=== PATIENT | female | born 1960 | race Caucasian/White ===

== ENCOUNTER 2024-04-09 11:22 | Outpatient (CLI) | payer OTHER, SELFPAY ==
--- NOTE | ~2024-04-09 | MM_ITS ---
EXAMINATION: MM screening celine BI w belia HISTORY: Screening TECHNIQUE: Craniocaudal and mediolateral oblique 3-D tomosynthesis images were obtained and synthetic 2-D images were generated. CAD analysis was submitted and interpreted. COMPARISON: Comparison to multiple prior studies sequentially, with oldest reviewed study dated 07/30. BREAST PARENCHYMAL COMPOSITION: Not dense: There are scattered areas of fibroglandular density. FINDINGS: There is no evidence of suspicious mass, calcification, or architectural distortion to sugg est malignancy in either breast. There has been no suspicious interval change. IMPRESSION: 1. No mammographic evidence of malignancy. 2. Recommend routine screening mammography in one year. BI-RADS Category 1: Negative Reviewed, dictated and finalized at location B.
== END 2024-04-09 11:23 ==
LOC: MICIMG 11:25
PROVIDERS: PCP Family Medicine; Visit Provider Family Medicine
DX: Z12.31 Encounter for screening mammogram for malignant neoplasm of breast (principal); Z78.0 Asymptomatic menopausal state
CPT/HCPCS: 77063; 77067

== ENCOUNTER 2024-04-15 07:48 | Outpatient (CLI) | payer OTHER, SELFPAY ==
--- NOTE | ~2024-04-15 | DEXA_ITS ---
? Bone Density Report? Name:? TAO BHATTI Enrique Patient ID:??? [id number] Age:? 63 Sex:? Female Ethnicity:? White Date of : 1960 Indication: postmenopausal; screening for osteoporosis; height loss; hysterectomy; Referring Provider: Rasheeda Pike Study: Bone densitometry was performed. Exam Date: April 15, 2024 Accession number: [id number] Bone Density: Region? BMD??? T-score? Z-score?? Classification AP Spine(L1-L4)? 0.813?? -2.1? -0.4? Osteopenia Femoral Neck (Left)? 0.616?? -2.1? -0.6? Osteopenia Total Hip (Left)? 0.728?? -1.8? -0.5?Osteopenia Femoral Neck (Right)? 0.617?? -2.1? -0.6? Osteopenia Total Hip (Right)? 0.741?? -1.7? -0.4? Osteopenia Femoral Neck Mean? 0.616?? -2.1? -0.6? Osteopenia Total Hip Mean? 0.734?? -1.7? -0.5?Osteopenia World Health Organization criteria for BMD impression classify patients as: Normal (T-score at or above -1.0), Osteopenia (T-score between -1.0 and -2.5), or Osteoporosis (T-score at or below -2.5). 10-year Fracture Risk(1): Major Osteoporotic Fracture? 11% Hip Fracture? 1.6% Reported Risk Factors: [place] (), Neck BMD=0.616, BMI=27.1 (1) FRAX? Version 3.08. Fracture probability calculated for an untreated patient. Fracture probability may be lower if the patient has received treatment. Clinical Information Provided by Patient: Has used the following medications: Vitamin D, Calcium Has the following medical conditions: Hysterectomy Patient maximum height was 67 Menopause Age: 49 Drinks caffeinated beverages Onset of menses at age 13 Number of children 2 Missed period for more than 6 months in a row Impression: The patient has low bone mass, based on the Total Spine T-score. Discussion: BONE DENSITY IS LOW AT ONE OR MORE SKELETAL SITES. This patient's lowest T-score is low at one or more skeletal sites.? It meets the World Health Organization's (WHO) criteria for ?low bone mass?? (T-score between -1.0 and -2.5).? The patient's 10-year risk of fracture as calculated by FRAX is less than the threshold where pharmacological therapy is recommended by the National Osteoporosis Foundation (NOF).? However, all treatment decisions require clinical judgment and consideration of individual patient factors, including patient preferences, comorbidities, previous drug use, risk factors not captured in the FRAX model (e.g., frailty, falls, vitamin D deficiency, increased bone turnover, interval significant decline in bone density) and possible under or overestimation of fracture risk by FRAX. The patient should follow a healthful lifestyle (good nutrition with adequate calci
== END 2024-04-15 07:49 | disposition home or self-care (01) ==
LOC: CHSIMG 07:49
PROVIDERS: PCP Family Medicine; Visit Provider Family Medicine
DX: Z78.0 Asymptomatic menopausal state (principal); M85.89 Other specified disorders of bone density and structure, multiple sites
CPT/HCPCS: 77080

== ENCOUNTER 2025-02-17 00:34 | Day surgery (SDC) | payer OTHER, SELFPAY ==
[2025-02-06 11:32] VITALS: BMI 26.2
--- OUTSIDE RECORDS SUMMARY | 2025-02-17 00:37 | XMS_ITS | CONTINUITY OF CARE DOCUMENT ---
Author Name benitez marquis Address Unknown Organization [facility] Address [address] [place] [address] Phone [phone] Care Team Providers Care Consulting Psychologist Name Role Phone benitez marquis Unavailable Unavailable
--- OUTSIDE RECORDS SUMMARY | 2025-02-17 00:37 | XMS_ITS | Referral Summary ---
Author Organization [facility] Address [address] [place] [address] Care Team Providers Care Highway Maintenance Crew Worker Name Role Phone Rasheeda Pike MD Primary Care Provider [phone] Allergies No known active allergies Medications calcium citrate-vitamin D3 200 mg-3.125 mcg (125 unit) tablet Take 125 mg by mouth 3 (three) times a day Active buPROPion XL (WELLBUTRIN XL) 300 mg 24 hr tablet Take 300 mg by mouth daily Active simvastatin (ZOCOR) 20 mg tablet Take 20 mg by mouth nightly Active vitamin b complex tablet Take 1 tablet by mouth 3 (three) times a day Active escitalopram (LEXAPRO) 10 mg tablet Take 10 mg by mouth daily Active calcium carbonate-vitam in D3 1,500 mg (600mg elemental) -800 unit per tablet Take 1 tablet by mouth 2 (two) times a day Active levothyroxine (SYNTHROID) 50 mcg tablet Take 50 mcg by mouth electroplater before breakfast Active aspirin 81 mg enteric coated tablet Take 81 mg by mouth daily Active propranolol LA (INDERAL LA) 60 mg 24 hr capsuleIndicati ons:Tremor Take 60 mg by mouth daily Active primidone (MYSOLINE) 50 mg tabletIndicatio ns:Tremor 1/4 tab qhs for 1 week, 1/2 tab po qhs for 1 week, 1/4 tab qam and 1/2 tab qhs for 1 week, 1/2 tab po bid for 1 week, 1/2 tab qam, 1 tab qhs for 1 week, then 1 tab bid 120 tablet 3 1 Active Active Problems No known active problems Social History Tobacco Use Types Packs/Day Years Used Date Smoking Tobacco: Former Smokeless Tobacco: Current Personal Safety Answer Date Recorded Getting School Help Needed Not on file 01/12 Comments Unknown Sex and Gender Information Value Date Recorded Sex Assigned at Not on file Legal Sex Female 11:28 PM ACCIDENT EXAMINER Gender Identity Female 09/19/2021 3:07 PM ACCIDENT EXAMINER Sexual Orientation Not on file Last Filed Vital Signs Vital Sign Reading Time Taken Comments Blood Pressure 139/76 09/21/2021 9:38 AM ACCIDENT EXAMINER Pulse 60 09/21/2021 9:38 AM ACCIDENT EXAMINER Temperature - - Respiratory Rate - - Oxygen Saturation - - Inhaled Oxygen Concentration - - Weight 74.8 kg (164 lb 12.8 oz) 09/21/2021 9:38 AM ACCIDENT EXAMINER Height 170.2 cm (5' 7 ) 09/21/2021 9:38 AM ACCIDENT EXAMINER Body Mass Index 25.81 09/21/2021 9:38 AM ACCIDENT EXAMINER Plan of Treatment Not on file Insurance [facility] AETNA SIGNATURE Care Teams Highway Maintenance Crew Worker Relationship Specialty Start Date End Date Rasheeda Pike MD PCP - General 10/06/16
--- OUTSIDE RECORDS SUMMARY | 2025-02-17 00:37 | XMS_ITS | Continuity of Care Document ---
Author Organization [facility] Address [address] [place] [address] Phone Care Team Providers Care Child Care Supervisor Name Role Phone Crystal Webber Unavailable Unavailable Advance Directives Directive Yes / No Effective Date File Name No Information Encounters Encounter Description Practice Location Reason(s) For Visit Diagnoses Date Provider Providers Copied on Encounter [facility], [address], [place], [place], [id number], [place] tel:[phone] [facility] No Information 0 [address]. [address] , [address], [place], [address], [place]. tel:[phone] Referring Provider: Nato Flores MD, [address], [place], [facility]. tel:[phone] Family History Family Member Type Diagnosis Age At Onset No Information Payers Payer name Insurance type Covered republican ID Authoriza timone(s) [facility] Commercial CI [id number] Social History Type Description Quantity Date Captured Comments Sex Female Smoking Status No Information Chief Complaint And Reason For Visit No Information Reason For Referral Reason For Referral No Information History Of Present Illness Encounter Date Complaint History Of Prese nt Illness No Information Functional Status Date Functional Assessmen t No Information Instructions Date Instruction Additional Infor mation No Information Assessments Type Assessment Date No Information Patient Care Teams Name Effective Dates (start - stop) Status Members No Information
--- OUTSIDE RECORDS SUMMARY | 2025-02-17 00:37 | XMS_ITS | Clinical Summary ---
Author Organization [facility] Address [address] [place] [address] Care Team Providers Care Stranding Machine Operator Helper Name Role Phone Rasheeda Pike MD Primary Care Provider [phone] Source Comments [facility],non-owned Affiliates and Associated Physician Practices is amultiple site organization consisting of ambulatory clinics and hospital sitesin [place], [place], [place] and [place]. This disclosure is being madepursuant to the Care Everywhere program and may not contain all information available regarding this patient. Last updated 18.[facility] Allergies No known active allergies Medications * Be aware that medications may not be up to date on this document. Always verify current medications with the patient. LEVOTHYROXINE SODIUM PO Active Escitalopram Oxalate (LEXAPRO PO) Active CALCIUM CARBONATE-VIT D-MIN PO Active simvastatin (ZOCOR) 20 MG tablet TAKE 1 TABLET BY MOUTH EVERY DAY IN THE EVENING 3 06/03/2019 Active benzonatate (TESSALON) 200 MG capsule Take 1 capsule by mouth 3 times daily as needed for Cough 30 capsule 08/20/2019 Active Social History Tobacco Use Types Packs/Day Years Used Date Smoking Tobacco: Never Smokeless Tobacco: Never Comments No Sex and Gender Information Value Date Recorded Sex Assigned at Not on file Legal Sex Female 2:58 PM CDT Gender Identity Not on file Sexual Orientation Not on file Last Filed Vital Signs Vital Sign Reading Time Taken Comments Blood Pressure 126/82 08/20/2019 4:22 PM CDT Pulse 81 08/20/2019 4:22 PM CDT Temperature 36.8 C (98.3 F) 08/20/2019 4:22 PM CDT Respiratory Rate 16 05/06/2019 10:57 AM CDT Oxygen Saturation 99% 05/06/2019 10:57 AM CDT Inhaled Oxygen Concentration - - Weight 72.6 kg (160 lb) 08/20/2019 4:22 PM CDT Height 170.2 cm (5' 7 ) 08/20/2019 4:22 PM CDT Body Mass Index 25.06 08/20/2019 4:22 PM CDT Plan of Treatment Health Maintenance Due Date Last Done Comments BONE DENSITY TESTING 1960 COLOGUARD (AGES 45-75) - COL ON CA SCREENING 1960 COLON MONITORING 1960 COLONOSCOPY - COLON CA SCREENING 1959 CT COLONOGRAPHY - COLON CA SCREENING 1960 Colorectal Cancer Screening 1960 FIT - COLON CA SCREENING 1960 FLEX SIG - COLON CA SCREENING 1960 MAMMOGRAM 1960 HIV SCREENING 1974 HEPATITIS C SCREENING 05/07/1977 DTAP/TDAP/TD VACCINES (1 - Tdap) 1978 PNEUMOCOCCAL VACCINE 50+ (1 of 1 - PCV) 2009 ZOSTER VACCINE (1 of 2) 2009 SCREENING FOR DIABETES 04/01/2019 COVID-19 VACCINE ( - 2023-2 5 season) 2024 DEPRESSION SCREENING 10/30/2024 INFLUENZA VACCINE (Season Ended) 2025 Respiratory Syncytial Virus (RSV) Vaccine Pt: or over 60 yrs (1 - 1-dose 75+ series) 2034 HEPATITIS B VACCINE Aged Out No longe r eligible based on patient's age to complete this topic HIB VACCINE Aged Out No longer eligi ble based on patient's age to complete this topic HPV VACCINE Aged Out No longer eligi ble based on patient's age to complete this topic MENINGOCOCCAL (Group B) VACC INE SHARED DECISION-MAKING Aged Out No longer eligibl e based on patient's age to complete this topic MENINGOCOCCAL GROUPS A/C/Y/W VACCINE Aged Out No longer eligible b ased on patient's age to complete this topic Insurance AETNA AETNA Care Teams Stranding Machine Operator Helper Relationship Specialty Start Date End Date Rasheeda Pike MD [address] [place] [address] PCP - General 07/13/21
--- OUTSIDE RECORDS SUMMARY | 2025-02-17 00:38 | XMS_ITS | Clinical Summary ---
Author Organization [facility] Address [address] [place] [address] Phone Care Team Providers Care Loan Broker Name Role Phone Rasheeda Pike MD Primary Care Provider [phone] Social History Tobacco Use Types Packs/Day Years Used Date Smoking Tobacco: Never Assessed Comments Unknown Sex and Gender Information Value Date Recorded Sex Assigned at Not on file Legal Sex Female 7:58 PM CDT Gender Identity Not on file Sexual Orientation Not on file Plan of Treatment Health Maintenance Due Date Last Done Comments DEXA Bone Density 1960 Hepatitis C Virus (HCV) Screening 1960 TdaP Immunization 1960 Pap Smear 1980 Cervical Cancer Screening (CCS) 1989 HPV/Cotest 1989 Cologuard 2009 Immunochemical Fecal Occult Blood 2009 Mammogram 2009 Pneumococcal Immunization (5 0+ years) (1 of 1 - PCV) 2009 Zoster Immunization (1 of 2) 2009 Influenza Immunization (#1) 2024 SARS-COV-2 Immunization ( - season) 2024 Colonoscopy 07/22/2026 07/22/2019 Colorectal Cancer Screening 07/22/2026 Respiratory Syncytial Virus (RSV) Immunization (Adult) (1 - 1-dose 75+ series) 2034 07/22/2019 Hepatitis B Immunization Aged Out No longer eligible based on patient's age to complete this topic Meningococcal Immunization (ACWY) Aged Out No longer eligible based on patient's age to complete this topic Pneumococcal Immunization Combined Aged Out No longer eligible based on patient's age to complete this topic Rotavirus Immunization Aged Out No lo nger eligible based on patient's age to complete this topic Procedures Procedure Name Priority Date/Time Associated Diagnosis Comments COLONOSCOPY Routine 07/22/2019 from Last 3 Months or Most Recently Relevant to Health Maintenance Results * COLONOSCOPY (07/22/2019) Romero Steven Mock DO PROCEDURE/MINOR SURGICAL ORDERA BLES Final Result from Last 3 Months or Most Recently Relevant to Health Maintenance Insurance [facility] Care Teams Loan Broker Relationship Specialty Start Date End Date Rasheeda Pike MD [address] [place] [address] PCP - General Family Medicine 06/13/19
--- OUTSIDE RECORDS SUMMARY | 2025-02-17 00:38 | XMS_ITS | Clinical Summary ---
Author Organization [facility] Building [facility] Address [address] [place] [address] Care Team Providers Care Food And Beverage Outlets Manager Name Role Phone Rasheeda Pike MD Primary Care Provider [phone] Allergies No known active allergies Medications calcium [...] mcg tablet Take 50 mcg by mouth corporate statistical financial analyst before breakfast Active aspirin 81 mg enteric [...] Active Active Problems No known active problems Surgical History Surgery Date Site/Laterality Comments HYSTERECTOMY Medical History Medical History Date Comments Migraine Family History Medical History Relation Name Comments Cancer Mother Relation Name Status Comments Mother Social History Tobacco Use Types Packs/Day Years Used Date Smoking Tobacco: Former Smokeless Tobacco: Current Personal Safety Answer Date Recorded Getting School Help Needed Not on file 01/12 Comments Unknown Sex and Gender Information Value Date Recorded Sex Assigned at Not on file Legal Sex Female 11:28 PM LIGHTHOUSE KEEPER Gender Identity Female 09/19/2021 3:07 PM LIGHTHOUSE KEEPER Sexual Orientation Not on file Obstetrics History Last Filed Vital Signs Vital Sign Reading Time Taken Comments Blood Pressure 139/76 09/21/2021 9:38 AM LIGHTHOUSE KEEPER Pulse 60 09/21/2021 9:38 AM LIGHTHOUSE KEEPER Temperature - - Respiratory Rate - - Oxygen Saturation - - Inhaled Oxygen Concentration - - Weight 74.8 kg (164 lb 12.8 oz) 09/21/2021 9:38 AM LIGHTHOUSE KEEPER Height 170.2 cm (5' 7 ) 09/21/2021 9:38 AM LIGHTHOUSE KEEPER Body Mass Index 25.81 09/21/2021 9:38 AM LIGHTHOUSE KEEPER Plan of Treatment Not on file Insurance [employer] SIGNATURE [address], [address] [id number] Care Teams Food And Beverage Outlets Manager Relationship Specialty Start Date End Date Rasheeda Pike MD PCP - General 10/06/16
[2025-02-17 06:56] VITALS: BP 118/65; PULSE 63; RESP 18; TEMP 36.1; O2SAT 97
[2025-02-17] MEDS: LACTATED RINGERS 1,000 ML 150 ML IV CONT (07:03)
--- NOTE | 2025-02-17 07:14 | P.PNAN_ITS ---
Anes - Initial Pre Proc Eval Procedure: Operation Date: 02/17/25 08:00 Proposed Procedures p Screening Colonoscopy - Brad Mullen MD Date/Time: 02/17/25 07:14 Surgeon: Brad Mullen MD Pre Op Diagnosis: Screening Patient Data Age: 64 Gender: F Height: 1.7 m Weight: 70 kg Last Vital Signs Temp 36.1 C L 02/17/25 06:56 Pulse 63 02/17/25 06:56 Resp 18 02/17/25 06:56 BP 118/65 02/17/25 06:56 Pulse Ox 97 02/17/25 06:56 O2 Del Method Room Air 02/17/25 06:56 Allergies Allergy/AdvReac Type Severity Reaction Status Date / Time No Known Allergies Allergy Verified 02/17/25 06:55 Home Medications ?Medication ?Instructions ?Recorded ?Confirmed ?Type calcium 600 mg (as 1 tablet PO BID 04/14/22 02/17/25 History carbonate)-vitamin D3 20 mcg (800 unit) tablet (Caltrate with Vitamin D3) cholecalciferol (vitamin D3) 25 75 mcg PO DAILY 04/14/22 02/06/25 History mcg (1,000 unit) capsule mecobalamin (vitamin B12) 1,000 3,000 mcg PO DAILY 04/14/22 02/17/25 History mcg chewable tablet simvastatin 20 mg tablet 20 mg PO DAILY #90 tabs 11/06/23 02/17/25 Rx escitalopram oxalate 10 mg tablet See Rx Instructions .Route 09/06/24 02/17/25 Rx .COMPLEX #90 tabs bupropion HCl 300 mg 24 hr tablet, 300 mg PO QAM #90 tabs 01/06/25 02/17/25 Rx extended release (Wellbutrin XL) levothyroxine 50 mcg tablet 50 mcg PO DAILY #90 tabs 01/06/25 02/17/25 Rx propranolol 60 mg capsule,24 60 mg PO DAILY #90 caps 01/06/25 02/17/25 Rx hr,extended release meloxicam 15 mg tablet See Rx Instructions .Route 02/05/25 02/17/25 Rx .COMPLEX #90 tabs aspirin 81 mg tablet,delayed 81 mg PO DAILY 02/06/25 02/17/25 History release (Adult Low Dose Aspirin) Patient hx anesthesia problems: none Family hx anesthesia problems: none Results Review: All pre-operative results and documents have been reviewed as part of the pre- operative evaluation. PMFSH Past Medical History Medical History Depression HLD (hyperlipidemia) Hypothyroidism Surgical History Surgical History H/O: hysterectomy Family History Family History Father Hypertension Mother Family history of primary malignant neoplasm of liver Other Family history of cardiovascular disease Family history of malignant neoplasm Social History Social History Smoking packs per day: 1 Smoking cigarettes per day: 20.0 Years smoked: 25 Smoking pack-years: 25.00 Smoking status: Former smoker Tobacco type: cigarettes Second hand tobacco smoke exposure: No Smoking end date: 10/30/12 Alcohol intake: never Substance use: never Substance use type: does not use Living arrangements: with family Occupation/Education: occupation Spiritual care concerns: No Anes - Eval Final PreProcedure Day of Procedure 02/17/25 07:14 Patient weight: normal Heart: regular rate and rhythm Lungs: clear to auscultation Airway: Mallampati scale class II Neurological: alert and oriented Last oral intake: >/= 8 hours ASA classification: III Emergent: no Anesthetic plan: proceed Anesthesia type and monitoring: general GIVS and standard monitoring Results Review: All pre-operative results and documents have been reviewed as part of the pre- operative evaluation. Informed Consent: The patient's anesthetic plan and its attendant risks and benefits were discussed with the patient/family/POA. Questions were solicited and answers provided to the satisfaction of the patient/family/POA.
--- NOTE | 2025-02-17 07:48 | PM.HPGS ---
History of Present Illness History of Present Illness Consent: Risks, benefits, and alternatives have been discussed and questions answered. Patient agrees to proceed with procedure. Chief complaint: Screening Narrative: Maame William is a 64 year old female here for colonoscopy, last one 5 years ago. Mother had colon cancer Review of Systems Review of Systems: All systems reviewed & are unremarkable except as noted in HPI and below PMFSH Past Medical History Medical History (Updated 02/17/25 @ 07:53 by Brad Mullen MD) Family history of colon cancer in mother Depression HLD (hyperlipidemia) Hypothyroidism Surgical History Surgical History H/O: hysterectomy Family History Family History Father Hypertension Mother Family history of primary malignant neoplasm of liver Other Family history of cardiovascular disease Family history of malignant neoplasm Social History Social History Smoking packs per day: 1 Smoking cigarettes per day: 20.0 Years smoked: 25 Smoking pack-years: 25.00 Smoking status: Former smoker Tobacco type: cigarettes Second hand tobacco smoke exposure: No Smoking end date: 10/30/12 Alcohol intake: never Substance use: never Substance use type: does not use Living arrangements: with family Occupation/Education: occupation Spiritual care concerns: No Meds Home Medications and Allergies Home Medications ?Medication ?Instructions ?Recorded ?Confirmed ?Type calcium 600 mg (as 1 tablet PO BID 04/14/22 02/17/25 History carbonate)-vitamin D3 20 mcg (800 unit) tablet (Caltrate with Vitamin D3) cholecalciferol (vitamin D3) 25 75 mcg PO DAILY 04/14/22 02/06/25 History mcg (1,000 unit) capsule mecobalamin (vitamin B12) 1,000 3,000 mcg PO DAILY 04/14/22 02/17/25 History mcg chewable tablet simvastatin 20 mg tablet 20 mg PO DAILY #90 tabs 11/06/23 02/17/25 Rx escitalopram oxalate 10 mg tablet See Rx Instructions .Route 09/06/24 02/17/25 Rx .COMPLEX #90 tabs bupropion HCl 300 mg 24 hr tablet, 300 mg PO QAM #90 tabs 01/06/25 02/17/25 Rx extended release (Wellbutrin XL) levothyroxine 50 mcg tablet 50 mcg PO DAILY #90 tabs 01/06/25 02/17/25 Rx propranolol 60 mg capsule,24 60 mg PO DAILY #90 caps 01/06/25 02/17/25 Rx hr,extended release meloxicam 15 mg tablet See Rx Instructions .Route 02/05/25 02/17/25 Rx .COMPLEX #90 tabs aspirin 81 mg tablet,delayed 81 mg PO DAILY 02/06/25 02/17/25 History release (Adult Low Dose Aspirin) Allergies Allergy/AdvReac Type Severity Reaction Status Date / Time No Known Allergies Allergy Verified 02/17/25 06:55 Vital Signs Vital Signs - 24 hr 02/17/25 06:56 Temperature 97 F L Pulse Rate 63 Respiratory Rate 18 Blood Pressure 118/65 Pulse Oximetry 97 Oxygen Delivery Room Air Exam Const: General: comfortable and no acute distress HENMT: Face/Nose/Sinus: Normal nares present Eyes: General: appearance normal, both eyes and all related structures Neck: Neck: no JVD Resp: Auscultation: clear to auscultation bilaterally Cardio: Rate: regular rate Rhythm: regular rhythm GI: Inspection: non-distended GI Palp: Yes Soft to palpation Skin: General skin exam: normal color Neuro: General: gait normal Speech: normal speech Extrem: General: normal to inspection Psych: Mental Status: mental status grossly normal Assessment and Plan Assessment and plan (1) Family history of colon cancer in mother: Code(s): Z80.0 - Family history of malignant neoplasm of digestive organs Status: Acute Assessment and Plan: colonoscopy
[2025-02-17 08:04] VITALS: BP 97/59; PULSE 57; RESP 14; O2SAT 100
[2025-02-17 08:14] VITALS: BP 106/67; PULSE 56; RESP 16; O2SAT 100
[2025-02-17 08:24] VITALS: BP 124/71; PULSE 59; RESP 20; O2SAT 100
== END 2025-02-17 08:47 | disposition home or self-care (01) ==
PROVIDERS: PCP Family Medicine; Referring Provider Student in an Organized Health Care Education/Training Program; Visit Provider Internal Medicine Gastroenterology
PROC: 0DJD8ZZ Inspection of Lower Intestinal Tract, Via Natural or Artificial Opening Endoscopic (ICD-10-PCS; CPT 45378; principal; 2025-02-17 08:00)
DX: Z12.11 Encounter for screening for malignant neoplasm of colon (principal); K64.8 Other hemorrhoids; K57.30 Diverticulosis of large intestine without perforation or abscess without bleeding; E78.5 Hyperlipidemia, unspecified; E03.9 Hypothyroidism, unspecified; F32.A Depression, unspecified; Z79.82 Long term (current) use of aspirin; Z98.890 Other specified postprocedural states; Z87.891 Personal history of nicotine dependence; Z80.0 Family history of malignant neoplasm of digestive organs; Z82.49 Family history of ischemic heart disease and other diseases of the circulatory system
CPT/HCPCS: 45378; J2003; J2704; J7120